=== PATIENT | male | born 1945 | race Caucasian/White ===

== ENCOUNTER 2017-07-10 13:16 | Inpatient (IN) | payer MEDICARE, BC ==
[2017-07-10] MEDS ORDERED: Temazepam 15 MG Cap PO PRN (13:38)
[2017-07-10] MEDS ORDERED: Acetaminophen 325 MG Tab PO PRN (13:38)
[2017-07-10] MEDS ORDERED: Ondansetron 4 MG/2 ML SDV IV PRN (13:38)
[2017-07-10] MEDS ORDERED: Magnesium Hydroxide 400 MG/5 ML Susp 30 ML Cup PO PRN (13:38)
[2017-07-10] MEDS ORDERED: Calcium Carbonate 500 MG Tab.Chew PO PRN (13:46)
[2017-07-10] MEDS: Levofloxacin/Dextrose 5%-Water 500 MG in Premix Bag 1 BAG IV SCH (14:17)
[2017-07-10 14:25] LABS: CHLORIDE,CL 97 mEq/L (98-106); SODIUM,NA 134 mEq/L (136-145)
[2017-07-10] MEDS: Sodium Chloride 0.45% with KCl 1,000 ML IV SCH ×2 (15:53→23:53)
[2017-07-10] MEDS ORDERED: Iopamidol 612 MG/ML 100 ML Bottle IVPUSH ONE (16:20)
[2017-07-10] MEDS: Insulin Aspart 100 Units/ML 3 ML Pen SUBCUT SCH ×2 (17:23→20:44)
[2017-07-10] MEDS: Chlorthalidone 25 MG Tab PO SCH (19:52)
[2017-07-10] MEDS: Atenolol 25 MG Tab PO SCH (19:53)
[2017-07-10] MEDS ORDERED: Pantoprazole 40 MG Vial IVPUSH SCH (20:00)
[2017-07-11 07:25] LABS: CHLORIDE,CL 99 mEq/L (98-106); SODIUM,NA 135 mEq/L (136-145)
[2017-07-11] MEDS ORDERED: Lisinopril 10 MG Tab PO SCH ×2 (08:00→20:00)
[2017-07-11] MEDS ORDERED: Polyethylene Glycol 3350 Powder 17 GM Packet PO SCH (08:00)
[2017-07-11] MEDS ORDERED: Lactated Ringers 1,000 ML IV ONE (08:07)
[2017-07-11] MEDS ORDERED: Midazolam 1 MG/ML 2 ML SDV ONE (08:35)
[2017-07-11] MEDS ORDERED: Meperidine PF 50 MG/ML Syringe ONE (08:35)
[2017-07-11] MEDS ORDERED: Lidocaine 4% Top Soln 5 ML LTA Syringe ONE (08:36)
[2017-07-11] MEDS ORDERED: Lidocaine 4% Top Soln 5 ML LTA Syringe TOP ONE (08:50)
[2017-07-11] MEDS ORDERED: Meperidine PF 50 MG/ML Syringe IV ONE (09:13)
[2017-07-11] MEDS ORDERED: Midazolam 1 MG/ML 2 ML SDV IV ONE (09:13)
[2017-07-11] MEDS: Chlorthalidone 25 MG Tab PO SCH (11:14)
[2017-07-11] MEDS: Levofloxacin/Dextrose 5%-Water 500 MG in Premix Bag 1 BAG IV SCH (11:15)
[2017-07-11] MEDS: Atenolol 25 MG Tab PO SCH (11:16)
--- NOTE | 2017-07-11 11:16 | PN ---
DATE: 07/11/2017 S: Massimo Sibley came in with vomiting yesterday, abdominal pain. I did do a CT of his abdomen, showed thickening of his stomach. Ultrasound is pending of his gallbladder this morning. O: NECK: Supple. CHEST: Clear. CARDIAC: Regular. ABDOMEN: Little tender in the midepigastric region. LABORATORY DATA: On reviewing his lab, blood sugar is up a little bit. Hemoglobin is down to 10.8. So, he possibly had a peptic ulcer during this. P: We are going to proceed with EGD this morning. KWASI/CAMILA /[id number]
[2017-07-11] MEDS: Insulin Aspart 100 Units/ML 3 ML Pen SUBCUT SCH ×2 (11:40→12:50)
--- NOTE | 2017-07-12 08:15 | OR ---
DATE OF OPERATION: 07/11/2017 PREOPERATIVE DIAGNOSIS: ABNORMAL CT SCAN. POSTOPERATIVE DIAGNOSIS: ABNORMAL CT SCAN. SURGEON: Valdez Singh MD PROCEDURE: EGD WITH BIOPSIES X2, DUARTE. ANESTHESIA: Conscious sedation. COMPLICATIONS: None. SPECIMEN: 1. Antral biopsy x2. 2. DUARTE. FINDINGS: 1. Full-length EGD. 2. Minimal antral gastritis. RECOMMENDATIONS: Medical followup with Dr. Bailey. INDICATIONS: The patient is in the hospital for vomiting. A CT scan of his abdomen showed some thickening of the distal stomach and duodenum. Dr. Bailey requested EGD. DESCRIPTION OF PROCEDURE: The patient was prepped and draped, placed in the left lateral decubitus position. A lubricated Olympus gastroscope was inserted over a bit and advanced to cricopharyngeus area with patient swallow, easily intubated into the esophagus. The esophageal lining was benign in its entire course. The Z-line was crisp and sharp at 40 cm. There was no distal esophagitis, stricturing, ulceration, or Slade's changes. The scope was advanced into the stomach through the pylorus, and into the second portion of the duodenum. This and the duodenal bulb appeared completely benign. The scope was brought back into the stomach and retroflexed. The upper fundus and cardia were completely unremarkable. Upon straightening, I could find no signs of any polyps, mass, ulceration, or bleeding sites in the stomach. There were few areas of very mild gastritis of the distal antrum which were biopsied x2 at the most affected area. A CLOtest was obtained. Air was then suctioned, scope removed without complication. ASTRID/CAMILA /[id number]
--- NOTE | 2017-07-12 08:18 | DISCH ---
HOSPITAL COURSE: Massimo Sibley came in yesterday vomiting, question gastroenteritis versus peptic ulcer disease. We did do a CT scan of his abdomen, thickened gastric wall. Had an EGD this morning. Had a mild gastritis. Ultrasound of the gallbladder is pending. PHYSICAL EXAMINATION: NECK: On examination prior to discharge, neck was supple. CHEST: Clear. CARDIAC: Sounds are good. ABDOMEN: Soft. LABORATORY DATA: Labs here in the hospital. Hemoglobin was down a little bit at 10.8, question etiology. INRs were good. Panel-8 looked good other than he had elevated creatinine which returned normal. Blood sugars mildly elevated. C-reactive protein and urine was good. DISPOSITION: The patient now discharged to home. Pending ultrasound results. DISCHARGE MEDICATIONS: Home medications plus Protonix 40 daily for 14 days. DISCHARGE DIAGNOSIS: 1. NAUSEA AND VOMITING. 2. HYPERTENSION. 3. DIABETES MELLITUS. KWASI/CAMILA /[id number]
== END 2017-07-11 14:50 | disposition home or self-care (01) | DRG 392 ==
LOC: CC.MS 13:16 → UNDOADMIN 13:16 → CC.MS 13:39
PROVIDERS: ADMIT General Practice; ATTEND General Practice
PROC: 0DB68ZX Excision of Stomach, Via Natural or Artificial Opening Endoscopic, Diagnostic (ICD-10-PCS; principal; 2017-07-11)
DX: K29.70 Gastritis, unspecified, without bleeding (principal); R17 Unspecified jaundice; R11.2 Nausea with vomiting, unspecified; E86.0 Dehydration; E78.5 Hyperlipidemia, unspecified; E11.9 Type 2 diabetes mellitus without complications; I10 Essential (primary) hypertension; R35.1 Nocturia; Z88.2 Allergy status to sulfonamides; Z88.8 Allergy status to other drugs, medicaments and biological substances; Z79.84 Long term (current) use of oral hypoglycemic drugs; Z79.82 Long term (current) use of aspirin; Z79.899 Other long term (current) drug therapy
CPT/HCPCS: 36415; 71020; 74177; 76705; 80053; 80074; 81001; 82150; 82728; 82962; 83540; 83550; 83690; 83735; 84443; 85025; 85610; 86140; 87081; 88305; 93005; A9270-GY; C9113; J1815-GY; J1956; J2175; J2250; J2405; J3480; J7120; Q9967

== ENCOUNTER 2019-03-08 07:00 | Emergency (ER) | payer MEDICARE, BC ==
--- NOTE | 2019-03-08 08:09 | EDM.PDOC ---
ED HPI GENERAL MEDICAL PROBLEM - General Chief Complaint: General Stated Complaint: BRADYCARDIA AND DIAPHORESIS Time Seen by Provider: 03/08/19 07:23 Source of Information: Reports: Patient, Family History Limitations: Reports: No Limitations - History of Present Illness INITIAL COMMENTS - FREE TEXT/NARRATIVE: pt to the ED c/o weakness, and slow HR, was seen by Dr. Dagoberto Tijerina, cardiology yesterday and had an outpt echo which at that point was found to have a low HR, he had left the office and was called back for an EKG, as he was not having any sx them was allowed to go home was to hold his beta papa and repeat an EKG on sunday. pt now c/o weakness, advised he was very diaphoretic during the night , no cp or sob at present, did have two stent placed on 02-19-19. no abd pain, no nv, no dey Onset: Gradual Duration: Day(s): Location: Reports: Chest Severity: Moderate Improves with: Reports: None Worsens with: Reports: Other (activity) Associated Symptoms: Reports: Weakness. Denies: Chest Pain, Cough, Fever/Chills , Headaches, Nausea/Vomiting Treatments FARE ENFORCEMENT OFFICER: Reports: Other (see below) (none, did hold the beta papa) - Related Data Allergies Allergy/AdvReac Type Severity Reaction Status Date / Time hydrochlorothiazide Allergy Numbness Verified 03/08/19 07:18 Sulfa (Sulfonamide Allergy Difficulty Verified 03/08/19 07:18 Antibiotics) Breathing seafood Allergy Itching Uncoded 03/08/19 07:18 Home Meds: Home Meds Felodipine [Felodipine ER] 10 mg PO DAILY 10/07/13 [History] Lisinopril 10 mg PO BID 10/07/13 [History] Aspirin [Halfprin] 81 mg PO DAILY 07/10/17 [History] Atenolol/Chlorthalidone [Tenoretic 50 Tablet] 0.5 each PO BID 07/10/17 [History] Cholecalciferol (Vitamin D3) [Vitamin D3] 5,000 unit PO DAILY 07/10/17 [History] Magnesium 500 mg PO DAILY 07/10/17 [History] metFORMIN HCl [Metformin HCl] 500 mg PO BID 07/10/17 [History] Clopidogrel Bisulfate [Plavix] 75 mg PO DAILY 03/06/19 [History] Rosuvastatin [Crestor] 10 mg PO DAILY 03/06/19 [History] Insulin Detemir [Levemir] 30 units SQ DAILY 03/08/19 [History] Past Medical History Cardiovascular History: Reports: Hypertension, Stents Other Cardiovascular History: sees Dr. Angelito Bailey in [place]; had a calcium test and said it was high; referred to cardiology. PTCA stent on 02-19-19. History: hypercholesterolemia, hypertension, Diabetes, CAD with previous DC and stent according to patient; since stent, he has been tired and has some SOB, has some orthopedica complaints with some hip pain, says he does not exert much because he gets SOB, legs weak; saw cardiology recently for followup visit--said he listened to his lungs then; used to have ankle edema, does not have anymore. Angiogram insertion site wrist healed. Says he does not drink alcohol, caffeine intake discussed Musculoskeletal History: Reports: Back Pain, Chronic Endocrine/Metabolic History: Reports: Diabetes, Type I - Past Surgical History GI Surgical History: Reports: Appendectomy Musculoskeletal Surgical History: Reports: Other (See Below) Other Musculoskeletal Surgeries/Procedures:: BACK FUSION Social & Family History - Tobacco Use Smoking Status *Q: Never Smoker - Caffeine Use Caffeine Use: Reports: Coffee - Living Situation & Occupation Living situation: Reports: Occupation: Retired ED ROS GENERAL - Review of Systems Review Of Systems: ROS reveals no pertinent complaints other than HPI. Constitutional: Reports: Weakness. Denies: Fever, Chills HEENT: Reports: No Symptoms Respiratory: Reports: No Symptoms. Denies: Shortness of Breath Cardiovascular: Reports: No Symptoms. Denies: Chest Pain GI/Abdominal: Reports: No Symptoms. Denies: Abdominal Pain, Nausea, Vomiting Musculoskeletal: Reports: No Symptoms Skin: Reports: No Symptoms Neurological: Reports: No Symptoms. Denies: Dizziness, Headache ED EXAM, GENERAL - Physical Exam Exam: See Below Exam Limited By: No Limitations General Appearance: Alert, WD/WN, No Apparent Distress Ears: Normal External Exam Nose: Normal Inspection Throat/Mouth: Normal Inspection, Normal Lips Head: Atraumatic, Normocephalic Neck: Normal Inspection, Supple, Non-Tender Respiratory/Chest: No Respiratory Distress, Lungs Clear, Normal Breath Sounds Cardiovascular: Bradycardia. No: Regular Rate, Rhythm Peripheral Pulses: 2+: Radial (L), Radial (R) GI/Abdominal: Soft, Non-Tender Back Exam: Normal Inspection, Full Range of Motion Extremities: Normal Inspection, Normal Range of Motion, Non-Tender, Normal Capillary Refill Neurological: Alert, Oriented, Normal Cognition, Normal Gait, No Motor/Sensory Deficits Psychiatric: Normal Affect, Normal Mood Skin Exam: Warm, Dry, Intact, Normal Color EKG INTERPRETATION EKG Date: 03/08/19 Time: 07:01 Rhythm: Other (malia, 2nd degree type II (2:1)) [place]: RAD-Right [place] Deviation P-Wave: Present QRS: Wide EKG Interpretation Comments: 2nd degree heart block type II (2:1) with a RBBB Course - Vital Signs Text/Narrative:: [id number] the pt was evaluated in the ED, pt hr n the 30's, EKG 2degree type II (2:1) , pts b/p is in the 120/, I discussed with him the need to transfer and he agrees, I spoke to Dr. Coreas the silk worker industrial organization manager, at 0737 who agrees the pt need to be sent to their hospital, 0745 I spoke to the transfer center who will get the ED doctor, 0751 Dr. Kranthi Vidales the ED attending physician has accepted the pt, EMS has been called for transportation, see the nurses notes for details of the transfer Risk and Benefit of transfer has been explained to the pt and his which is that the pts condition can become worse, he might need to be placed on an external pace maker, he might and might be in a car wreck, the benefit is evaluation and treatment by cardiology not available at [facility]. Last Recorded V/S: Last Vital Signs Temp 37.1 C 03/08/19 07:49 Pulse 31 L 03/08/19 07:49 Resp 16 03/08/19 07:49 BP 137/57 L 03/08/19 07:49 Pulse Ox 98 03/08/19 07:49 - Orders/Labs/Meds Orders: Active Orders 24 hr Category Date Time Status Chest 1V Frontal [CR] Stat Exams 03/08/19 07:38 Ordered CBC WITH AUTO DIFF [HEME] Stat Lab 03/08/19 07:38 Ordered COMPREHENSIVE METABOLIC PN,CMP [CHEM] Stat Lab 03/08/19 07:38 Ordered MAGNESIUM [CHEM] Stat Lab 03/08/19 07:38 Ordered TROPONIN I [CHEM] Stat Lab 03/08/19 07:38 Ordered Departure - Departure Time of Disposition: 08:20 Disposition: DC/Tfer to Acute Hospital 02 Condition: Good Clinical Impression: Mobitz type 2 second degree heart block, Weakness - Discharge Information *PRESCRIPTION DRUG MONITORING PROGRAM REVIEWED*: Not Applicable *COPY OF PRESCRIPTION DRUG MONITORING REPORT IN PATIENT REECE: Not Applicable Forms: ED Department Discharge ED Communication - ED Communication Date/Time Date: 03/08/19 Time Called: 07:37 - Conversation Summary Admitting Provider Agreed to Patient's Admission: Yes Summary Comment: see above for details - Problem List & Annotations (1) Mobitz type 2 second degree heart block SNOMED Code(s): 56703851 Code(s): I44.1 - ATRIOVENTRICULAR BLOCK, SECOND DEGREE Status: Acute Priority: High Current Visit: Yes (2) Weakness SNOMED Code(s): 92778510 Code(s): R53.1 - WEAKNESS Status: Acute Priority: High Current Visit: Yes - Problem List Review Problem List Initiated/Reviewed/Updated: Yes - My Orders Last 24 Hours: My Active Orders 03/08/19 07:38 Chest 1V Frontal [CR] Stat CBC WITH AUTO DIFF [HEME] Stat COMPREHENSIVE METABOLIC PN,CMP [CHEM] Stat MAGNESIUM [CHEM] Stat TROPONIN I [CHEM] Stat - Assessment/Plan Last 24 Hours: My Active Orders 03/08/19 07:38 Chest 1V Frontal [CR] Stat CBC WITH AUTO DIFF [HEME] Stat COMPREHENSIVE METABOLIC PN,CMP [CHEM] Stat MAGNESIUM [CHEM] Stat TROPONIN I [CHEM] Stat Plan: transfer to [facility]
== END 2019-03-08 08:52 ==
LOC: CC.ED 07:00
DX: I44.1 Atrioventricular block, second degree (principal); R53.1 Weakness; I10 Essential (primary) hypertension; Z95.5 Presence of coronary angioplasty implant and graft; Z88.8 Allergy status to other drugs, medicaments and biological substances; Z88.2 Allergy status to sulfonamides; Z91.013 Allergy to seafood; Z79.899 Other long term (current) drug therapy; Z79.01 Long term (current) use of anticoagulants
CPT/HCPCS: 36415; 80053; 83735; 84484; 85025; 93005; 93010; 99284; 99285-25

== ENCOUNTER 2023-07-20 11:15 | Emergency (ER) | payer MEDICARE, BC | END 2023-07-20 12:07 | disposition home or self-care (01) | LOC: SUPCPDRO 11:15 → CC.ED 11:15 | DX: R19.03 Right lower quadrant abdominal swelling, mass and lump (principal); I10 Essential (primary) hypertension; E10.9 Type 1 diabetes mellitus without complications; I25.10 Atherosclerotic heart disease of native coronary artery without angina pectoris; Z79.84 Long term (current) use of oral hypoglycemic drugs; Z79.4 Long term (current) use of insulin; Z87.891 Personal history of nicotine dependence; Z90.49 Acquired absence of other specified parts of digestive tract; Z88.2 Allergy status to sulfonamides; Z91.013 Allergy to seafood; Z79.899 Other long term (current) drug therapy | CPT/HCPCS: 74019; 99283 ==